=== PATIENT | female | born 1940 | race Caucasian/White ===

== ENCOUNTER 2021-01-18 08:40 | Inpatient (IN) ==
[2021-01-18] MEDS ORDERED: Isovue-370 500 ML BOTTLE IVP ONE (08:57)
[2021-01-18 09:14] LABS: Hematocrit 43.5 % (35.3-44.9); Hemoglobin 13.8 g/dL (11.5-15.4); Mean Corpuscular HGB Conc 31.7 g/dL (31.6-35.5); Mean Corpuscular Hemoglobin 27.9 pg (28.0-33.3); Mean Corpuscular Volume 88.1 fL (83.0-100.0); Mean Platelet Volume 10.2 fL (9.4-12.4); Platelet Count 163 K/mcL (140-400); Red Blood Count 4.94 M/mcL (3.82-4.97); Red Cell Distribution Width 13.9 % (11.5-14.5); White Blood Count 4.8 K/mcL (4.3-11.1)
[2021-01-18 09:23] LABS: INR 0.9; Prothrombin Time 10.5 Seconds (9.4-12.1)
[2021-01-18 09:26] LABS: Activated Partial Thrombo Time 28.3 Seconds (26.0-36.0)
[2021-01-18 09:35] LABS: Alanine Aminotransferase 6 Units/L (7-52); Albumin 4.1 g/dL (3.5-5.7); Albumin/Globulin Ratio 1.5 (1.1-2.2); Alkaline Phosphatase 73 Units/L (34-104); Aspartate Amino Transferase 15 Units/L (13-39); BUN/Creatinine Ratio 15 (6-26); Bilirubin,Direct 0.1 mg/dL (0.0-0.2); Bilirubin,Indirect 0.8 mg/dL (0.0-1.0); Bilirubin,Total 0.9 mg/dL (0.3-1.0); Blood Urea Nitrogen 16 mg/dL (8-23); Carbon Dioxide 27 mEq/L (23-29); Chloride 108 mEq/L (98-107); Globulin 2.8 g/dL (2.4-3.5); Glucose 81 mg/dL (70-105); Osmolality,Calculated 288 (280-300); Potassium 4.3 mEq/L (3.5-5.1); Sodium 139 mEq/L (136-145); Total Protein 6.9 g/dL (6.4-8.9); Troponin I < 0.03 ng/mL (< 0.04); eGFR For African Americans > 60 (> 60); eGFR For Non-African Americans 51 (> 60)
[2021-01-18 10:04] LABS: Influenza A PCR Negative (Negative); Influenza B PCR Negative (Negative); Resp. Syncytial Virus PCR Negative (Negative)
[2021-01-18 10:36] LABS: SARS-CoV-2 by PCR (In House) Negative (Negative)
[2021-01-18 12:02] LABS: Bilirubin,Urine Negative (Negative); Blood,Urine Negative (Negative); Clarity,Urine Clear (Clear); Color,Urine Light-Yellow (Yellow); Glucose,Urine (UA) Normal (Normal); Ketones,Urine Negative (Negative); Leukocyte Esterase,Urine Negative (Negative); Nitrite,Urine Negative (Negative); Protein,Urine Negative (Neg-Trace); Specific Gravity,Urine 1.015 (1.010-1.025); Urobilinogen,Urine Normal (Normal)
[2021-01-18] MEDS ORDERED: Perflutren Lipid Microsphere 1.3 ML in 0.9 % Sodium Chloride 8.7 ML IVP PRN (12:08)
[2021-01-18] MEDS ORDERED: Ondansetron 4 MG/2 ML VIAL IVP PRN (12:10)
[2021-01-18] MEDS ORDERED: Melatonin 3 MG TABLET PO PRN (12:10)
[2021-01-18] MEDS ORDERED: Acetaminophen 325 MG TABLET PO PRN (12:10)
[2021-01-19 04:07] LABS: BUN/Creatinine Ratio 14 (6-26); Blood Urea Nitrogen 15 mg/dL (8-23); Calcium 9.5 mg/dL (8.6-10.3); Carbon Dioxide 25 mEq/L (23-29); Chloride 108 mEq/L (98-107); Cholesterol 255 mg/dL (< 200); Glucose 84 mg/dL (70-105); HDL Cholesterol 63 mg/dL (40-59); LDL Cholesterol,Calculated 175 mg/dL (< 100); Osmolality,Calculated 288 (280-300); Potassium 3.9 mEq/L (3.5-5.1); Sodium 139 mEq/L (136-145); Triglycerides 85 mg/dL (< 150); eGFR For African Americans > 60 (> 60); eGFR For Non-African Americans 50 (> 60)
[2021-01-19] MEDS: *HR* Enoxaparin 40 MG/0.4 ML SYRINGE SQ SCH (04:24)
[2021-01-19 04:44] LABS: Estimated Average Glucose 94 mg/dl; Hemoglobin A1C 4.9 %
[2021-01-19] MEDS ORDERED: Dorzolamide/Timolol 1 DROP BOTH EYES SCH (09:00)
[2021-01-19] MEDS: Furosemide 20 MG TABLET PO SCH (09:59)
[2021-01-19] MEDS: hydrALAZINE 10 MG TABLET PO SCH ×4 (09:59→20:46)
[2021-01-19] MEDS ORDERED: *HR* LORazepam 2 MG/ML VIAL IVP ONE (14:51)
[2021-01-19] MEDS ORDERED: [UNRECOGNIZED DRUG - OTHER] BOTH EYES SCH (21:00)
[2021-01-19] MEDS ORDERED: LATANOPROST BOTH EYES SCH (21:00)
[2021-01-19] MEDS ORDERED: NETARSUDIL MESYLAT BOTH EYES SCH (21:00)
[2021-01-19] MEDS: Dorzolamide/Timolol OPTH 10 ML BOTTLE BOTH EYES SCH (21:32)
[2021-01-20] MEDS: *HR* Enoxaparin 40 MG/0.4 ML SYRINGE SQ SCH (06:00)
[2021-01-20] MEDS: Furosemide 20 MG TABLET PO SCH (09:21)
[2021-01-20] MEDS: Dorzolamide/Timolol OPTH 10 ML BOTTLE BOTH EYES SCH (09:22)
[2021-01-20] MEDS: hydrALAZINE 10 MG TABLET PO SCH ×2 (09:22→12:14)
[2021-01-20 11:25] VITALS: BP 119/58; PULSE 55; TEMP 97.4; O2SAT 95
[2021-01-20] MEDS ORDERED: NETARSUDIL MESYLAT OP SCH (21:00)
[2021-01-20] MEDS ORDERED: LATANOPROST OP SCH (21:00)
== END 2021-01-20 17:10 | disposition home or self-care (01) | DRG 66 ==
LOC: 2ANU 08:40 → EMEROOARM 08:40 → 2ANU 15:46 → SUATTDRO 16:31
PROVIDERS: ADMIT Internal Medicine; ATTEND Hospitalist